=== PATIENT | male | born 2005 | race Caucasian/White ===

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

== ENCOUNTER 2023-04-03 16:05 | Emergency (ER) | payer OTHER ==
[2023-04-03 16:27] VITALS: BP 98/42; PULSE 57; RESP 18; TEMP 98.2; BMI 22.2
[2023-04-03] MEDS ORDERED: IBUPROFEN 600 MG TABLET (FP) PO ONE ×3 (17:47→17:54)
[2023-04-03] MEDS ORDERED: CYCLOBENZAPRINE HCL 10 MG TABLET (FP) PO ONE (17:47)
[2023-04-03] MEDS ORDERED: CYCLOBENZAPRINE HCL 10 MG TABLET (FP) ONE (17:50)
== END 2023-04-03 19:08 | disposition home or self-care (01) ==
LOC: JER 16:05
DX: R07.89 Other chest pain (principal); M94.0 Chondrocostal junction syndrome [Tietze]; X50.0XXA Overexertion from strenuous movement or load, initial encounter
CPT/HCPCS: 71046-TC-FY; 93005; 93010; 99284-25